=== PATIENT | female | born 1975 | race Caucasian/White ===

== ENCOUNTER → 2020-05-31 | Outpatient (CLI) | payer OTHER ==
[~2020-05-31] MED LIST: ALBUTEROL2.5 MG/31 INH; CLARITIN10 MG PO; IBUPROFEN 800800 MG PO; NORCO 5-325 TA1 EACH PO; OMEPRAZOLE 20 M20 MG PO; SINGULAIR 10 MG10 M1 PO; SYMBICORT160 MCG/4. INH
== END ==
LOC: M.RAD 10:54
PROVIDERS: ATTEND Registered Nurse Diabetes Educator
DX: M25.521 Pain in right elbow (principal); M77.8 Other enthesopathies, not elsewhere classified